=== PATIENT | male | born 1955 | race Caucasian/White ===

== ENCOUNTER 2019-01-25 11:00 | Inpatient (IN) | payer MEDICARE, OTHER ==
[~2019-01-25] VITALS: Ht 157.5 cm; Wt 65.8 kg
[2019-01-25] MEDS ORDERED: ONDANSETRON HCL 4MG/2ML INJ IV STA (12:03)
[2019-01-25] MEDS ORDERED: MORPHINE SULFATE 4 MG/ML CPJ (NOT FOR IM USE) IV STA (12:03)
[2019-01-25] MEDS ORDERED: ASPIRIN 81MG TABLET PO ONE (12:15)
[2019-01-25] MEDS ORDERED: NITROGLYCERIN OINT 1GM/INCH UDPKT TD ONE (12:15)
[2019-01-25 12:35] LABS: BASOPHILS % 1.1 % (0.0-2.0); HEMATOCRIT. 42.2 % (42.0-52.0); HEMOGLOBIN. 14.6 g/dL (14.0-18.0); LYMPHOCYTES % 32.9 % (20.0-50.0); MEAN CORPUSCULAR HEMOGLOBIN 32.7 pg (28.0-32.0); MEAN CORPUSCULAR VOLUME 94.6 fL (80.0-94.0); MEAN PLATELET VOLUME 7.5 fl (7.4-10.4); MONOCYTES % 5.1 % (2.0-8.0); NEUTROPHILS % 59.9 % (40.0-76.0); PLATELET 237 x1000/uL (130-400); RED BLOOD CELL COUNT 4.46 mill/uL (4.7-6.1); RED CELL DISTRIBUTION WIDTH 12.5 % (11.6-14.6)
[2019-01-25 12:42] LABS: CHLORIDE 105 mEq/L (98-107)
[2019-01-25 12:44] LABS: D-DIMER 0.62 mg/L FEU (<0.50); PROTHROMBIN TIME 10.2 sec (9.6-11.0)
[2019-01-25 13:23] LABS: METHADONE URINE SCREEN NEGATIVE (NEGATIVE); OPIATES URINE SCREEN NEGATIVE (NEGATIVE); PHENCYCLIDINE URINE SCREEN NEGATIVE (NEGATIVE)
[2019-01-25 13:25] LABS: *AMPHETAMINES SCREEN URINE NEGATIVE (NEGATIVE); *BARBITURATES SCREEN URINE NEGATIVE (NEGATIVE); *BENZODIAZEPINES SCREEN URINE NEGATIVE (NEGATIVE); *COCAINE SCREEN URINE NEGATIVE (NEGATIVE); CANNABINOID URINE SCREEN NEGATIVE (NEGATIVE)
[2019-01-25 14:30] VITALS: BP 114/59
[2019-01-25 15:04] VITALS: BP 114/69
[2019-01-25 16:00] VITALS: BP 98/58
[2019-01-25] MEDS ORDERED: MAGNESIUM/ALUMINUM HYDROXIDE/SIMETHICONE 30ML UDC PO PRN (16:45)
[2019-01-25] MEDS ORDERED: MORPHINE SULFATE 2 MG/ML CPJ (NOT FOR IM USE) IV PRN (16:45)
[2019-01-25] MEDS ORDERED: ACETAMINOPHEN 325MG TABLET PO PRN (16:45)
[2019-01-25] MEDS ORDERED: CLONIDINE 0.1MG TABLET PO PRN (16:45)
[2019-01-25] MEDS ORDERED: HYDROCODONE/ACETAMINOPHEN 5/325MG TABLET PO PRN (16:45)
[2019-01-25] MEDS ORDERED: DOCUSATE SODIUM 100MG CAPSULE PO PRN (16:45)
[2019-01-25] MEDS: AMLODIPINE 10MG TABLET PO SCH (17:00)
[2019-01-25] MEDS ORDERED: ENOXAPARIN 40MG/0.4ML SYR SUBCUT SCH (18:00)
[2019-01-25 20:00] VITALS: BP 95/62
[2019-01-25 23:38] LABS: CREATINE KINASE MB FRACTION 1.1 ng/mL (0.5-3.6)
[2019-01-26] VITALS: BP 96/51
[2019-01-26 04:00] VITALS: BP 99/55
[2019-01-26 07:10] LABS: BASOPHILS % 1.2 % (0.0-2.0); EOSINOPHILS % 2.8 % (0.0-5.0); HEMATOCRIT. 37.7 % (42.0-52.0); LYMPHOCYTES % 43.4 % (20.0-50.0); MEAN CORPUSCULAR HEMOGLOBIN 32.8 pg (28.0-32.0); MEAN CORPUSCULAR VOLUME 95.2 fL (80.0-94.0); MEAN PLATELET VOLUME 7.3 fl (7.4-10.4); MONOCYTES % 6.3 % (2.0-8.0); NEUTROPHILS % 46.3 % (40.0-76.0); PLATELET 222 x1000/uL (130-400); RED BLOOD CELL COUNT 3.96 mill/uL (4.7-6.1); RED CELL DISTRIBUTION WIDTH 12.3 % (11.6-14.6)
[2019-01-26 07:22] LABS: CHLORIDE 105 mEq/L (98-107)
[2019-01-26 07:42] LABS: LDL CHOLESTEROL 122 mg/dL (5-100)
[2019-01-26 07:43] LABS: CREATINE KINASE 100 IU/L (39-308)
[2019-01-26 07:44] LABS: HDL CHOLESTEROL 36 mg/dL (40-59)
[2019-01-26 07:46] LABS: CREATINE KINASE MB FRACTION 1.1 ng/mL (0.5-3.6)
[2019-01-26 07:49] VITALS: BP 102/67
[2019-01-26] MEDS: AMLODIPINE 10MG TABLET PO SCH (09:00)
[2019-01-26] MEDS: ASPIRIN 81MG EC TABLET PO SCH (09:49)
[2019-01-26] MEDS ORDERED: NITROGLYCERIN 0.4MG TABLET SL SL PRN (10:45)
[2019-01-26 12:00] VITALS: BP 117/64
[2019-01-26] MEDS: ENOXAPARIN 60MG/0.6ML SYR SUBCUT SCH ×2 (13:04→23:00)
[2019-01-26] MEDS ORDERED: REGADENOSON 0.4 MG/5 ML IV ONE (14:00)
[2019-01-26 16:00] VITALS: BP 101/58
[2019-01-26] MEDS: NITROGLYCERIN OINT 1GM/INCH UDPKT TD SCH ×2 (16:41→20:45)
[2019-01-26 20:00] VITALS: BP 103/61
[2019-01-26] MEDS ORDERED: ATORVASTATIN CALCIUM 40MG TABLET PO SCH (21:00)
[2019-01-26] MEDS ORDERED: ATORVASTATIN CALCIUM 20MG TABLET PO SCH (21:00)
[2019-01-27] VITALS (7 sets, daily range): BP systolic 90–104; BP diastolic 52–66
[2019-01-27] MEDS: NITROGLYCERIN OINT 1GM/INCH UDPKT TD SCH ×5 (00:52→16:35)
[2019-01-27 06:37] LABS: BASOPHILS % 0.9 % (0.0-2.0); HEMATOCRIT. 38.6 % (42.0-52.0); HEMOGLOBIN. 13.4 g/dL (14.0-18.0); LYMPHOCYTES % 35.4 % (20.0-50.0); MEAN CORPUSCULAR HEMOGLOBIN 32.6 pg (28.0-32.0); MEAN PLATELET VOLUME 7.5 fl (7.4-10.4); MONOCYTES % 5.3 % (2.0-8.0); NEUTROPHILS % 56.4 % (40.0-76.0); PLATELET 218 x1000/uL (130-400); RED CELL DISTRIBUTION WIDTH 12.3 % (11.6-14.6)
[2019-01-27 07:20] LABS: CHLORIDE 103 mEq/L (98-107)
[2019-01-27 07:39] LABS: CREATINE KINASE 74 IU/L (39-308)
[2019-01-27 07:43] LABS: CREATINE KINASE MB FRACTION < 1.0 ng/mL (0.5-3.6)
[2019-01-27 07:44] LABS: HDL CHOLESTEROL 37 mg/dL (40-59); LDL CHOLESTEROL 118 mg/dL (5-100)
[2019-01-27] MEDS: ASPIRIN 81MG EC TABLET PO SCH ×2 (08:30→11:56)
[2019-01-27] MEDS ORDERED: REGADENOSON 0.4 MG/5 ML IV SCH (08:30)
[2019-01-27] MEDS ORDERED: REGADENOSON 0.4 MG/5 ML IV ONE (09:00)
[2019-02-03] MEDS ORDERED: OMEG1CAP46 PO (13:30)
[2019-02-03] MEDS ORDERED: LIP40 PO (13:30)
[2019-02-03] MEDS ORDERED: ASPI-1393 PO (13:30)
== END 2019-01-27 19:25 | disposition home or self-care (01) | DRG 206 ==
LOC: ER 11:00 → 6WST 12:58 → EDBEDREQ 13:01 → ENRESERV 13:18
PROVIDERS: ADMIT Hospitalist; ATTEND Hospitalist
DX: M94.0 Chondrocostal junction syndrome [Tietze] (principal); E46 Unspecified protein-calorie malnutrition; E78.2 Mixed hyperlipidemia; I95.89 Other hypotension; I95.9 Hypotension, unspecified; Z68.26 Body mass index [BMI] 26.0-26.9, adult
CPT/HCPCS: 36415; 71045; 78452; 80061; 80305; 82550; 82553; 83735; 83880; 84439; 84443; 84484; 85379; 93005; 93017; 93306; 93970; 96374; 96375; 99285; A9500; J1650; J2270; J2405; J2785

== ENCOUNTER 2019-12-03 22:24 | Emergency (ER) | payer MEDICARE ==
[~2019-12-03] VITALS: Ht 157.5 cm; Wt 61.9 kg
[~2019-12-03 22:24] MED LIST: ASPI-1497 PO; LIP40 PO; OMEG1CAP46 PO
[2019-12-04] MEDS ORDERED: ACETAMINOPHEN 325MG TABLET PO ONE (00:15)
[2019-12-04 01:28] VITALS: BP 119/84
== END 2019-12-04 01:30 | disposition home or self-care (01) ==
LOC: ER 22:24
DX: R07.81 Pleurodynia (principal); I51.9 Heart disease, unspecified; Z98.61 Coronary angioplasty status; Z79.82 Long term (current) use of aspirin; X50.0XXA Overexertion from strenuous movement or load, initial encounter; Y93.89 Activity, other specified; Y92.018 Other place in single-family (private) house as the place of occurrence of the external cause
CPT/HCPCS: 71100; 99283

== ENCOUNTER 2019-12-31 16:14 | Emergency (ER) | payer MEDICARE ==
[~2019-12-31] VITALS: Ht 160 cm; Wt 59.0 kg
[2019-12-31] MEDS ORDERED: ACETAMINOPHEN WITH CODEINE 300/30MG TABLET PO ONE (17:00)
[2019-12-31 18:42] VITALS: BP 128/78
== END 2019-12-31 18:42 | disposition home or self-care (01) ==
LOC: ER 16:14
DX: M54.9 Dorsalgia, unspecified (principal); E78.00 Pure hypercholesterolemia, unspecified; Z79.899 Other long term (current) drug therapy; Z79.82 Long term (current) use of aspirin
CPT/HCPCS: 71045; 99283

== ENCOUNTER 2020-01-05 00:20 | Emergency (ER) | payer MEDICARE ==
[~2020-01-05] VITALS: Ht 157.5 cm; Wt 60.0 kg
[2020-01-05] MEDS ORDERED: ACETAMINOPHEN 325MG TABLET PO ONE (02:00)
[2020-01-05 02:55] LABS: EOSINOPHILS % 0.7 % (0.0-5.0); HEMATOCRIT. 39.9 % (42.0-52.0); LYMPHOCYTES % 34.1 % (20.0-50.0); MEAN CORPUSCULAR HEMOGLOBIN 33.2 pg (28.0-32.0); MEAN CORPUSCULAR VOLUME 94.5 fL (80.0-94.0); MEAN PLATELET VOLUME 7.2 fl (7.4-10.4); NEUTROPHILS % 58.2 % (40.0-76.0); PLATELET 189 x1000/uL (130-400); RED BLOOD CELL COUNT 4.22 mill/uL (4.7-6.1); RED CELL DISTRIBUTION WIDTH 13.4 % (11.6-14.6)
[2020-01-05 03:02] LABS: CHLORIDE 101 mEq/L (98-107)
[2020-01-05 03:33] VITALS: BP 120/69
== END 2020-01-05 04:13 | disposition home or self-care (01) ==
LOC: ER 01:42
DX: K80.20 Calculus of gallbladder without cholecystitis without obstruction (principal); R10.13 Epigastric pain; E78.00 Pure hypercholesterolemia, unspecified; Z95.1 Presence of aortocoronary bypass graft; Z79.82 Long term (current) use of aspirin
CPT/HCPCS: 36415; 76705; 80053; 85025; 99284